=== PATIENT | female | born 1965 | race Caucasian/White ===

== ENCOUNTER → 2020-12-28 | Outpatient (CLI) | payer OTHER ==
[~2020-12-28] MED LIST: ALBUTEROL2.5 MG/3 M INH; ALORA1 EAC3 TOP; ASPIR 8181 MG PO; AUGMENTIN 875-1 EACH PO; BMP Blood Test; BUSPIRONE HCL15 MG PO; CEFPODOXIME PR200 MG PO; CLARITIN10 MG PO; COGENTIN 2MG TAB2 MG PO; COREG3.125 MG PO; CYMBALTA30 MG PO; CYMBALTA60 MG PO; DEX4 GLUCOSE BIT1 GM PO; DOXYCYCLINE HY100 M2 PO; FLONASE 0.05% N16 GM; GABADONE CAPSU1 EACH PO; HUMALOG 10100 UNITS/ SC; KLONOPIN TAB 00.5 MG PO; LANTUS INS100 UTS/M1 SC; LEVAQUIN500 MG PO; LIPITOR80 MG PO; NEURONTIN300 MG PO; NITROSTAT0.4 MG SL; NOVOLOG100 UNIT/1 SC; PEPCID20 MG PO; PLAVIX 75 MG TA75 MG PO; PLAVIX75 MG PO; POTASSIUM CHLO10 ME1 PO; PREVACID30 MG PO; PROAIR DIGIHAL90 MCG INH; PROTONIX40 MG PO; ROPINIROLE HCL2 MG PO; SINGULAIR10 MG PO; SYNTHROID137 MCG PO; TRAZODONE HCL100 MG PO; TRULANCE3 MG PO; XYZAL5 MG PO; ZOLOFT100 MG PO
== END ==
LOC: KOH-I 16:00
DX: M79.641 Pain in right hand (principal)
CPT/HCPCS: 73120

== ENCOUNTER → 2021-01-17 | Outpatient (CLI) | payer OTHER | LOC: KOH-I 15:30 | DX: R07.89 Other chest pain (principal); R59.9 Enlarged lymph nodes, unspecified; M96.89 Other intraoperative and postprocedural complications and disorders of the musculoskeletal system | CPT/HCPCS: 71250 ==

== ENCOUNTER → 2021-08-21 | Emergency (ER) | payer OTHER ==
[~2021-08-21] MED LIST changes: +BACTRIM 400-801 EACH PO; +CEPHALEXIN500 M1 PO
== END | disposition home or self-care (01) ==
LOC: ER1 14:21
DX: L02.416 Cutaneous abscess of left lower limb (principal); I10 Essential (primary) hypertension; E78.5 Hyperlipidemia, unspecified; E11.9 Type 2 diabetes mellitus without complications; Z95.1 Presence of aortocoronary bypass graft; F17.200 Nicotine dependence, unspecified, uncomplicated
CPT/HCPCS: 10060; 99282